=== PATIENT | male | born 1950 | race Caucasian/White ===

== ENCOUNTER 2023-09-18 11:34 | Emergency (ER) | payer OTHER, SELFPAY ==
[2023-09-18] VITALS (7 sets, daily range): BP systolic 134–171; BP diastolic 75–98; PULSE 72–95; RESP 12–19; TEMP 36.8; O2SAT 94–97; BMI 26.6
--- NOTE | 2023-09-18 11:48 | ECG_ITS ---
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 Measurements Intervals [place] Rate: 93 P: 59 MS: 159 QRS: 54 QRSD: 85 T: 33 QT: 335 QTc: 417 Interpretive Statements SINUS RHYTHM No previous ECG available for comparison Electronically Signed On 09-18-2023 13:03:13 ORDER ENTRY SPECIALIST by Evelio Elise M.D. [id number]
--- NOTE | 2023-09-18 12:07 | XR_ITS ---
WS: [id number] Portable AP upright chest, 09/18/2023 Clinical Data: syncope Comparison: None. Findings: No nodules, masses or effusions are seen. The heart is normal. The pulmonary vascularity is not increased. No pneumonia or pneumothorax is seen. The diaphragms are flattened. The aortic arch a nd descending thoracic aorta show tortuosity. There are monitor leads on the chest wall. Impression: Atherosclerosis and hyperinflation.
--- NOTE | 2023-09-18 12:17 | ED_ITS ---
HPI - Nausea/Vomiting/Diarrhea 2 General: Chief complaint: Nausea/Vomiting/Diarrhea Stated complaint: dr sent over for possible heart attack last night Time Seen by Provider: 09/18/23 11:55 Source: patient Mode of arrival: ambulatory Limitations: no limitations History of Present Illness: 73-year-old male states that last night he was laying in bed and had severe episode of feeling he is going to vomit and have diarrhea he states he ran to the bathroom had diarrhea and had a syncopal event. He states you home woke up he is covered in sweat and had diarrhea. He denies any chest pain or headache before or after the event. [facility] due to the syncopal event. He also has another complaint that is chronic he said he had chronic congestion for months and he shined a light on the phlegm and thinks that he sees cerebrospinal fluid. Associated nausea: Yes Associated symtoms: Reports nausea and syncope; Denies chest pain, dysuria or headache(s) Review of Systems 2 Const: Denies: fever(s), chills, body aches or change in appetite ENMT: Denies: throat pain or dental pain Card: Reports: syncope; Denies: chest pain Resp: Denies: dyspnea GI: Reports: nausea, vomiting and diarrhea; Denies: abdominal pain : Denies: dysuria Musc: Denies: neck pain or back pain Skin/Breast: Denies: rash Neuro: Denies: headache(s) Physical Exam 2 Const: COMMON NORMALS: no acute distress, patient oriented x3 and healthy appearing HENMT: COMMON NORMALS: normocephalic and atraumatic HEAD & SCALP: n ormocephalic and atraumatic Eye: COMMON NORMALS: Equal, round and reactive pupils present and EOMs intact bilaterally PUPIL: Yes Equal, round and reactive pupils present Neck/C-Spine: COMMON NORMALS: full ROM and supple Chest: COMMONS NORMALS: normal inspection of the chest and normal palpation of entire chest wall Resp: COMMON NORMALS: normal respiratory effort, No retractions, No use of accessory muscles and clear to auscultation bilaterally AUSCULTATION: clear to auscultation bilaterally Cardio: COMMON NORMALS: regular rate, regular rhythm and No murmurs present (Cardio) RATE: regular rate RHYTHM: regular rhythm GI: COMMON NORMALS: Normal to inspection, nondistended, normoactive bowel sounds present, Soft to palpation, non-tender and no masses PALPATION: Yes Soft to palpation Extremity: COMMON NORMALS: normal to inspection and full ROM Neuro: COMMON NORMALS: patient oriented x3, moves all extremities and no focal motor deficits Psych: COMMON NORMALS: mental status grossly normal, Normal thought process present and cooperative THOUGHT PROCESS: Normal thought process present Skin: COMMON NORMALS: no rashes or lesions noted and no wounds GENERAL SKIN EXAM: no rashes or lesions noted Course 2 Vital Signs: Vital signs: Vital Signs Temperature 98.2 F 09/18/23 11:41 Pulse Rate 72 09/18/23 14:23 Respiratory Rate 19 H 09/18/23 14:23 Blood Pressure 146/84 09/18/23 14:23 Pulse Oximetry 94 09/18/23 14:23 Oxygen Delivery Me thod Room Air 09/18/23 13:07 MDM - Nausea/Vomiting/Diarrhea Medical Decision Making Patient presents with vomiting along with a chronic cough blood work x-ray here is normal he is in no distress here also a syncopal event is likely vasovagal from his vomiting and diarrhea. He is stable for discharge his follow-up his PCP and return if worsening Medical Records I reviewed the patient's medical records. Lab Data I reviewed the patient's lab results. 09/18/23 12:02 09/18/23 12:02 Laboratory Results WBC 6.15 10^3/uL (3.29-11.43) 09/18/23 12:02 RBC 5.64 10^6/uL (3.85-5.65) 09/18/23 12:02 Hgb 16.90 g/dL (11.27-16.99) 09/18/23 12:02 Hct 49.6 % (37-53) 09/18/23 12:02 MCV 87.9 fl (82-101) 09/18/23 12:02 MCH 30.0 pg (27-33) 09/18/23 12:02 MCHC 34.1 g/dL (30-55) 09/18/23 12:02 RDW 13.2 % (12.1-15.1) 09/18/23 12:02 Plt Count 204 10^3/cmm (157-399) 09/18/23 12:02 MPV 9.7 fL (7.4-10.4) 09/18/23 12:02 Neut % (Auto) 65.0 % 09/18/23 12:02 Lymph % (Auto) 17.6 % 09/18/23 12:02 [place] % (Auto) 15.9 % 09/18/23 12:02 Eos % (Auto) 0.3 % 09/18/23 12:02 Baso % (Auto) 0.5 % 09/18/23 12:02 Neut # (Auto) 4.00 10^3/uL (1.8-7.7) 09/18/23 12:02 Lymph # (Auto) 1.1 10^3/uL (0.8-4.8) 09/18/23 12:02 [place] # (Auto) 1.0 10^3/uL (0.2-0.9) H 09/18/23 12:02 Eos # (Auto) 0.0 10^3/uL (0.0-0.8) 09/18/23 12:02 Baso # (Auto) 0.0 10^3/uL (0.0-0.1) 09/18/23 12:02 Nucleated RBC % (auto) 0 % 09/18/23 12:02 Nucleated RBCs # 0.0 /100WBC 09/18/23 12:02 Sodium 137 mmol/L (136-145) 09/18/23 12:02 Potassium 3.6 mmol/L (3.5-5.1) 09/18/23 12:02 Chloride 99 mmol/L (98-107) 09/18/23 12:02 Carbon Dioxide 25 mmol/L (22-29) 09/18/23 12:02 Anion Gap 16.6 (5-19) 09/18/23 12:02 BUN 13 mg/dL (8-23) 09/18/23 12:02 Creatinine 0.8 mg/dL (0.7-1.2) 09/18/23 12:02 GFR Calculation Not Reportable 09/18/23 12:02 Glucose 118 mg/dL (65-115) H 09/18/23 12:02 Calculated Osmolality 285 mOsm/kg (285-295) 09/18/23 12:02 Calcium 9.6 mg/dL (8.5-10.5) 09/18/23 12:02 Total Bilirubin 0.6 mg/dL (0.15-1.2) 09/18/23 12:02 AST 22 U/L (0-40) 09/18/23 12:02 ALT 14 U/L (0-41) 09/18/23 12:02 Alkaline Phosphatase 124 U/L (40-130) 09/18/23 12:02 Total Protein 8.3 g/dL (6.6-8.7) 09/18/23 12:02 Albumin 4.4 g/dL (3.5-5.2) 09/18/23 12:02 Globulin 3.9 g/dL (1.3-4.6) 09/18/23 12:02 All radiology interpretation(s) finalized by discharge EKG Data EKG 1: I personally reviewed and interpreted this EKG as follows: EKG interpretation date: 09/18/23 EKG interpretation time: 11:48 Interpretation: nsr hr [address] or t wave abnormalities qrs 85 qtc 386 Discharge Plan Discharge Patient Disposition: Home Clinical Impression: Vomiting, Chronic cough, Syncope Condition: Stable Prescriptions: New ondansetron 4 mg tablet,disintegrating 4 mg PO Q6H PRN (Reason: nausea and vomiting) Qty: 14 0RF No Action cetirizine 10 mg Tablet 10 mg PO DAILY sertraline 100 mg Tablet 100 mg PO DAILY Vitamin D3 10 mcg (400 unit) Tablet 10 mcg PO DAILY prazosin 2 mg Capsule 2 mg PO QPM rosuvastatin 40 mg Tablet 40 mg PO QPM Discharge Orders: Discharge ED (Routine); Ordered 09/18/23 Ordered By: Leigh Correa Discharge Diet: Advance as tolerated Discharge Activity: Resume usual activity Patient Instructions: Acute Nausea and Vomiting (ED), Chronic Cough (ED) Coding Level of Care Code ED Email Administrator for Mark Mcbride
[2023-09-18 12:18] LABS: Basophils % 0.5 %; Eosinophils % 0.3 %; Hematocrit 49.6 % (37-53); Lymphocytes # 1.1 10^3/uL (0.8-4.8); Lymphocytes % 17.6 %; Mean Corpuscular HGB Conc 34.1 g/dL (30-55); Mean Corpuscular Volume 87.9 fl (82-101); Mean Platelet Volume 9.7 fL (7.4-10.4); Monocytes % 15.9 %; Nucleated Red Blood Cells % 0 %; Platelet Count 204 10^3/cmm (157-399); Red Blood Count 5.64 10^6/uL (3.85-5.65); Red Cell Distribution Width 13.2 % (12.1-15.1); White Blood Count 6.15 10^3/uL (3.29-11.43)
--- NOTE | 2023-09-18 12:19 | PC.PHAR ---
FAN BAILEY FOR MED LIST 09/18/23 12:17PM
[2023-09-18 12:31] LABS: Alanine Aminotransferase 14 U/L (0-41); Albumin Level 4.4 g/dL (3.5-5.2); Alkaline Phosphatase 124 U/L (40-130); Anion Gap 16.6 (5-19); Aspartate Amino Transferase 22 U/L (0-40); Blood Urea Nitrogen 13 mg/dL (8-23); Calcium 9.6 mg/dL (8.5-10.5); Carbon Dioxide 25 mmol/L (22-29); Chloride 99 mmol/L (98-107); Globulin 3.9 g/dL (1.3-4.6); Glucose 118 mg/dL (65-115); Osmolality Calculated 285 mOsm/kg (285-295); Potassium 3.6 mmol/L (3.5-5.1); Sodium 137 mmol/L (136-145); Total Bilirubin 0.6 mg/dL (0.15-1.2); Total Protein 8.3 g/dL (6.6-8.7)
[2023-09-18] MEDS: sodium chloride 0.9% 1,000 ML 999 ML IV (12:32)
[2023-09-18] MEDS: ondansetron 2 mg/ML SDV 2 mL 4 MG IVP (12:32)
--- NOTE | 2023-09-24 08:06 | DCPLANNER ---
Message sent pulm department for a follow up appointment - Chronic cough-
== END 2023-09-18 14:27 | disposition home or self-care (01) ==
PROVIDERS: Emergency Provider Emergency Medicine
DX: R05.3 Chronic cough (principal); R11.11 Vomiting without nausea; R55 Syncope and collapse
CPT/HCPCS: 71045; 80053; 85025; 93005; 96361; 96374; 99285; J2405; J7030

== ENCOUNTER 2023-10-30 08:27 | Outpatient (CLI) | payer OTHER, SELFPAY ==
--- NOTE | 2023-10-30 08:30 | US_ITS ---
WS: [id number] RIGHT UPPER QUADRANT ULTRASOUND HISTORY: RUQ PAIN/NAUSEA VOMITING COMPARISON: None available. Liver: 13.1 cm in length. Normal size liver and echogenicity. No bile duct dilatation or solid mass. Slightly lobulated cyst towards the diaphragm 1.6 x 1.3 x 1.5 cm. Portal Vein: Normal hepatopetal flow with monophasic waveform. Gallbladder: Normally distended gallbladder with no stones or wall thickening. CBD: 0.3 cm Pancreas: Obscured. Right kidney: 10.9 cm in length. Normal size kidney. Central cyst in the renal pelvis measures 1.7 x 2.3 x 2.2 cm. Aorta and IVC: Unremarkable abdominal aorta and IVC. No ascites. IMPRESSION: 1. Normal gallbladder. 2. Small hepatic and small RIGHT renal cysts. No solid mass. 3. Pancreas not visualized.
== END 2023-10-30 08:28 | disposition home or self-care (01) ==
LOC: RAD 08:27
PROVIDERS: PCP Family Medicine; Visit Provider Family Medicine
DX: R10.11 Right upper quadrant pain (principal); R11.2 Nausea with vomiting, unspecified; K76.89 Other specified diseases of liver; N28.1 Cyst of kidney, acquired
CPT/HCPCS: 76705

== ENCOUNTER → 2023-12-02 15:12 | Outpatient (BNVA) | payer OTHER, SELFPAY | PROVIDERS: PCP Family Medicine; Referring Provider Family Medicine; Visit Provider Dermatology | DX: L82.1 Other seborrheic keratosis (principal); L91.8 Other hypertrophic disorders of the skin; D18.01 Hemangioma of skin and subcutaneous tissue; Q83.3 Accessory nipple; L81.4 Other melanin hyperpigmentation; L57.8 Other skin changes due to chronic exposure to nonionizing radiation | CPT/HCPCS: 99203 ==

== ENCOUNTER 2024-07-01 20:36 | Inpatient (IN) | payer OTHER, MEDICARE, SELFPAY ==
[2024-07-01] VITALS (8 sets, daily range): BP systolic 120–188; BP diastolic 11–103; PULSE 56–74; RESP 12–20; TEMP 36.4; O2SAT 97–100; BMI 28.1
--- NOTE | 2024-07-01 20:47 | XRR_ITS ---
PROCEDURE INFORMATION: Exam: XR Abdomen Exam date and time: 07/01/2024 9:08 PM Age: 74 years old Clinical indication: Abdominal pain; Generalized TECHNIQUE: Imaging protocol: Radiologic exam of the abdomen. Views: 2 Views. Upright and supine views. COMPARISON: US abdomen limited [id number] 10/30/2023 8:33 AM FINDINGS: Tubes, catheters and devices: Pelvic surgical clips. Lungs: Stable left upper lobe likely calcified granuloma. Gastrointestinal tract: Normal. No bowel dilation. Intraperitoneal space: Normal. No free air. Bones/joints: Multilevel spondylosis. XR/XR acute abdomen series 18902 IMPRESSION: No acute thoracic or abdominopelvic abnormality.
--- NOTE | 2024-07-01 20:52 | ECG_ITS ---
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
[2024-07-01 21:08] LABS: Basophils % 0.4 %; Eosinophils # 0.1 10^3/uL (0.0-0.8); Eosinophils % 0.7 %; Hematocrit 44.1 % (37-53); Lymphocytes # 1.1 10^3/uL (0.8-4.8); Lymphocytes % 15.1 %; Mean Corpuscular HGB Conc 33.6 g/dL (30-55); Mean Corpuscular Hemoglobin 29.5 pg (27-33); Mean Corpuscular Volume 87.8 fl (82-101); Mean Platelet Volume 9.5 fL (7.4-10.4); Monocytes # 0.5 10^3/uL (0.2-0.9); Monocytes % 6.6 %; Neutrophils # 5.33 10^3/uL (1.8-7.7); Neutrophils % 76.9 %; Nucleated Red Blood Cells % 0 %; Platelet Count 265 10^3/cmm (157-399); Red Blood Count 5.02 10^6/uL (3.85-5.65); White Blood Count 6.94 10^3/uL (3.29-11.43)
[2024-07-01 21:23] LABS: Alanine Aminotransferase 12 U/L (0-41); Albumin Level 4.5 g/dL (3.5-5.2); Alkaline Phosphatase 106 U/L (40-130); Blood Urea Nitrogen 9 mg/dL (8-23); C Reactive Protein 5.2 mg/L (0.0-4.9); Carbon Dioxide 21 mmol/L (22-29); Chloride 99 mmol/L (98-107); Creatinine Clr Calc Pharmacy 84.1908; Globulin 3.5 g/dL (1.3-4.6); Glucose 162 mg/dL (65-115); Lactic Sepsis W/Reflex 1.8 mmol/L (0.5-2.2); Osmolality Calculated 284 mOsm/kg (285-295); Sodium 136 mmol/L (136-145); Total Bilirubin 0.6 mg/dL (0.15-1.2); Troponin(5th) Baseline 69 ng/L (0-15)
--- NOTE | 2024-07-01 21:23 | ED_ITS ---
HPI - Abdominal Pain 2 General: Chief Complaint: Abdominal Pain Stated Complaint: Abd Pain Time Seen by Provider: 07/01/24 20:45 History of Present Illness: 74-year-old man who presents to the [facility] room with severe central abdominal pain and distention. Apparently after cutting down some limbs or trees today he developed the pain a few hours back. Has had some nausea no vomiting. Abdomen is slightly distended but still soft. Very tender centrally. No history of anything like this in the past. Related Data Home Medications Medication Instructions Recorded Confirmed cetirizine 10 mg tablet 10 mg PO DAILY 09/18/23 09/18/23 cholecalciferol (vitamin D3) 10 10 mcg PO DAILY 09/18/23 09/18/23 mcg (400 unit) tablet (Vitamin D3) prazosin 2 mg capsule 2 mg PO QPM 09/18/23 09/18/23 rosuvastatin 40 mg tablet 40 mg PO QPM 09/18/23 09/18/23 sertraline 100 mg tablet 100 mg PO DAILY 09/18/23 09/18/23 Previous Rx's Medication Instructions Recorded ondansetron 4 mg disintegrating 4 mg PO Q6H PRN nausea and 09/18/23 tablet vomiting #14 tabs Allergies Allergy/AdvReac Type Severity Reaction Status Date / Time No Known Allergies Allergy Verified 09/18/23 11:38 Review of Systems 2 Narrative: Constitutional symptoms: Negative except as documented in HPI. Skin symptoms: Negative except as documented in HPI. Eye symptoms: Negative except as documented in HPI. ENMT symptoms: Negative except as documented in HPI. Respiratory symptoms: Negative except as documented in HPI. Cardiovascular symptoms: Negative except as documented in HPI. Gastrointestinal symptoms: Negative except as documented in HPI. Genitourinary symptoms: Negative except as documented in HPI. Musculoskeletal symptoms: Negative except as documented in HPI. Neurologic symptoms: Negative except as documented in HPI. Psychiatric symptoms: Negative except as documented in HPI. Endocrine symptoms: Negative except as documented in HPI. Physical Exam 2 Narrative: EXAM NARRATIVE: General: Alert, no acute distress. Skin: Warm, slightly diaphoretic Head: Normocephalic, atraumatic. Neck: Supple, trachea midline. Eye: Extraocular movements are intact. Ears, nose, mouth and throat: mucosa moist. Cardiovascular: Regular, Normal peripheral perfusion. Respiratory: Lungs are clear to auscultation, respirations are non-labored, breath sounds are equal, Symmetrical chest wall expansion. Gastrointestinal: Soft, slightly distended, very tender to palpation centrally. Musculoskeletal: Normal ROM, no deformity. Neurological: Alert and oriented, No focal neurological deficit observed. Psychiatric: Cooperative, appropriate mood & affect. Course 2 Vital Signs: Vital signs: Vital Signs Temperature 97.5 F L 07/01/24 20:46 Pulse Rate 62 07/01/24 21:36 Respiratory Rate 19 H 07/01/24 21:36 Blood Pressure 173/97 07/01/24 21:21 Pulse Oximetry 100 07/01/24 21:36 Oxygen Delivery Me thod Room Air 07/01/24 21:36 MDM - Abdominal Pain Medical Decision Making Medical decision making: Differential diagnosis including but not limited to and based on the above HPI, review of systems and physical exam: In this patient with severe mid abdominal pain would have concern for bowel obstruction. Aortic dissection. Coronary event. Orders placed to evaluate differential diagnosis based on the above differential, HPI and physical exam EKG: Time 2051. Rate 63. Normal sinus rhythm, No ST-T changes, no ectopy, normal AR & QRS intervals, This was reviewed and interpreted by myself the ER physician at 2054 Lab Review: Laboratory results were reviewed and interpreted by myself the emergency room physician. No leukocytosis. No anemia. No renal failure. Glucose mildly elevated at 162. Initial troponin is 69. Second troponin was 82 Acute abdominal series: chest x-ray: No acute process. No obvious infiltrates. No pneumothorax. No cardiomegaly. This was reviewed and interpreted by myself the emergency room physician Abdomen x-ray: Nonspecific bowel gas pattern. No evidence of free air or obstruction. This was reviewed and interpreted by myself the emergency room physician. CT of the abdomen pelvis: No acute process. This was reviewed and interpreted by myself the emergency room physician. I also reviewed the radiology report. I reviewed the patient's medical record. Reexamination: Patient is now pain-free. No increased work of breathing. No altered mental status. No focal motor deficits. Once patient had pain control he gave a much better history. He described initial event of being very fatigued and more epigastric pain. This likely could be acute coronary event. Abdominal workup was negative Consultation: I spoke with Dr. Ventura who is on-call for the hospitalist and patient is being admitted. Assessment and plan: Non-ST elevation myocardial infarction - Discharged home - Discussed findings and plan with patient. Answered any questions. - All laboratory values were reviewed and interpreted personally by myself, the ER physician - All imaging was reviewed and interpreted personally by myself, the ER physician. - Evaluation and treatment of this problem were appropriate in the emergency setting Lab Data 07/01/24 21:04 07/01/24 21:04 Labs/Radiology: Radiology Impressions Chest/Abdomen X-ray 07/01/24 20:47 IMPRESSION: No acute thoracic or abdominopelvic abnormality. Abdomen/Pelvis CT 07/01/24 22:33 IMPRESSION: No acute abdominopelvic abnormality. COMMENTS: Consistent with the [place] [employer]'s Incidental Findings Committee white paper (J Am Neela Radiol 2018): Any incidental renal lesion less than 1 cm or classified as too small to characterize, or any incidental cystic renal lesion characterized as simple-appearing, is likely benign. No follow-up imaging is recommended for these lesions per consensus recommendations based on imaging criteria. Laboratory Results WBC 6.94 10^3/uL (3.29-11.43) 07/01/24 21:04 RBC 5.02 10^6/uL (3.85-5.65) 07/01/24 21:04 Hgb 14.80 g/dL (11.27-16.99) 07/01/24 21:04 Hct 44.1 % (37-53) 07/01/24 21:04 MCV 87.8 fl (82-101) 07/01/24 21:04 MCH 29.5 pg (27-33) 07/01/24 21:04 MCHC 33.6 g/dL (30-55) 07/01/24 21:04 RDW 14.0 % (12.1-15.1) 07/01/24 21:04 Plt Count 265 10^3/cmm (157-399) 07/01/24 21:04 MPV 9.5 fL (7.4-10.4) 07/01/24 21:04 Neut % (Auto) 76.9 % 07/01/24 21:04 Lymph % (Auto) 15.1 % 07/01/24 21:04 [place] % (Auto) 6.6 % 07/01/24 21:04 Eos % (Auto) 0.7 % 07/01/24 21:04 Baso % (Auto) 0.4 % 07/01/24 21:04 Neut # (Auto) 5.33 10^3/uL (1.8-7.7) 07/01/24 21:04 Lymph # (Auto) 1.1 10^3/uL (0.8-4.8) 07/01/24 21:04 [place] # (Auto) 0.5 10^3/uL (0.2-0.9) 07/01/24 21:04 Eos # (Auto) 0.1 10^3/uL (0.0-0.8) 07/01/24 21:04 Baso # (Auto) 0.0 10^3/uL (0.0-0.1) 07/01/24 21:04 Nucleated RBC % (auto) 0 % 07/01/24 21:04 Nucleated RBCs # 0.0 /100WBC 07/01/24 21:04 D-Dimer 0.42 ug/mLFEU (0-0.59) 07/01/24 21:04 Sodium 136 mmol/L (136-145) 07/01/24 21:04 Potassium 3.8 mmol/L (3.5-5.1) 07/01/24 21:04 Chloride 99 mmol/L (98-107) 07/01/24 21:04 Carbon Dioxide 21 mmol/L (22-29) L 07/01/24 21:04 Anion Gap 19.8 (5-19) H 07/01/24 21:04 BUN 9 mg/dL (8-23) 07/01/24 21:04 Creatinine 0.8 mg/dL (0.7-1.2) 07/01/24 21:04 GFR Calculation Not Reportable 07/01/24 21:04 Glucose 162 mg/dL (65-115) H 07/01/24 21:04 Calculated Osmolality 284 mOsm/kg (285-295) L 07/01/24 21:04 Lactic Acid 1.8 mmol/L (0.5-2.2) 07/01/24 21:04 Calcium 9.0 mg/dL (8.5-10.5) 07/01/24 21:04 Total Bilirubin 0.6 mg/dL (0.15-1.2) 07/01/24 21:04 AST 21 U/L (0-40) 07/01/24 21:04 ALT 12 U/L (0-41) 07/01/24 21:04 Alkaline Phosphatase 106 U/L (40-130) 07/01/24 21:04 Troponin T Baseline 69 ng/L (0-15) H 07/01/24 21:04 Troponin T 120 Minute 82.17 ng/L (0-15) H 07/01/24 23:20 Delta Troponin T 13.17 ABS# (0-10) H* 07/01/24 23:20 C-Reactive Protein 5.2 mg/L (0.0-4.9) H 07/01/24 21:04 Total Protein 8.0 g/dL (6.6-8.7) 07/01/24 21:04 Albumin 4.5 g/dL (3.5-5.2) 07/01/24 21:04 Globulin 3.5 g/dL (1.3-4.6) 07/01/24 21:04 Urine Color Yellow (Yellow) 07/01/24 21:30 Urine Appearance Clear (CLEAR) 07/01/24 21:30 Urine pH 8.5 (5-7) A 07/01/24:30 Ur Specific [place] 1.013 (1.005-1.030) 07/01/24 21:30 Urine Protein Trace (Negative) A 07/01/24 21:30 Urine Glucose (UA) Negative (Normal) 07/01/24 21:30 Urine Ketones 2+ (Negative) H 07/01/24 21:30 Urine Blood Negative (Negative) 07/01/24 21:30 Urine Nitrate Negative (Negative) 07/01/24 21:30 Urine Bilirubin Negative (Negative) 07/01/24 21:30 Urine Urobilinogen 0.2 mg/dL (Negative) 07/01/24 21:30 Ur Leukocyte Esterase Negative (Negative) 07/01/24 21:30 Urine RBC 3-5 /hpf (0-2) 07/01/24 21:30 Urine WBC 0-5 /hpf (0-5) 07/01/24 21:30 Ur Squamous Epith Cells 0-5 /hpf (0-5) 07/01/24 21:30 Amorphous Sediment Not Reportable 07/01/24 21:30 Urine Bacteria None seen /hpf (NONE) 07/01/24 21:30 Hyaline Casts 0-4 /lpf H 07/01/24 21:30 All radiology interpretation(s) finalized by discharge Discharge Plan Discharge Patient Disposition: Admitted As Inpatient Clinical Impression: Non-ST elevated myocardial infarction Condition: Stable Coding Level of Care Code ED Control And Recovery Special Tactics for Mark Mcbride
[2024-07-01 21:25] LABS: Anion Gap 19.8 (5-19); Aspartate Amino Transferase 21 U/L (0-40); Potassium 3.8 mmol/L (3.5-5.1)
[2024-07-01] MEDS: HYDROmorphone 1 mg/mL INJ 1 mL IVP (21:39)
[2024-07-01] MEDS: ondansetron 2 mg/ML SDV 2 mL 4 MG IVP (21:40)
[2024-07-01 21:41] LABS: Bilirubin Urine Negative (Negative); Blood Urine Negative (Negative); Glucose Urine UA Negative (Normal); Ketones Urine 2+ (Negative); Leukocyte Esterase Urine Negative (Negative); Nitrate Urine Negative (Negative); Protein Urine Trace (Negative); Specific Gravity, Urine 1.013 (1.005-1.030); Urine Appearance Clear (CLEAR); Urine Color Yellow (Yellow); Urobilinogen Urine 0.2 mg/dL (Negative); pH Urine 8.5 (5-7)
[2024-07-01 21:46] LABS: Bacteria Urine None Seen /hpf; Hyaline Casts Urine 0-4 /lpf; Squamous Epithelial Cell Urine 0-5 /hpf (0-5); WBC Urine 0-5 /hpf (0-5)
[2024-07-01 21:56] LABS: D Dimer 0.42 ug/mLFEU (0-0.59)
--- NOTE | 2024-07-01 22:33 | CTR_ITS ---
PROCEDURE INFORMATION: Exam: CT Abdomen And Pelvis With Contrast Exam date and time: 07/01/2024 10:42 PM Age: 74 years old Clinical indication: Abdominal pain; Epigastric; Prior surgery; Surgery date: 6+ months; Surgery type: Prostate removal TECHNIQUE: Imaging protocol: Computed tomography of the abdomen and pelvis with contrast. Radiation optimization: All CT scans at this facility use at least one of these dose optimization techniques: automated exposure control; mA and/or kV adjustment per patient size (includes targeted exams where dose is matched to clinical indication); or iterative reconstruction. Contrast material: OMNI 350; Contrast volume: 100 ml; Contrast route: INTRAVENOUS (IV); COMPARISON: CR (CHEST, ) 07/01/2024 9:08 PM RADIATION DOSE METRICS: Total DLP (mGy-cm): 753.34 FINDINGS: Liver: Bilobar simple hepatic cysts. Gallbladder and biliary ducts: Normal. No calcified stones. No ductal dilation. Pancreas: Unremarkable. Spleen: Splenic granulomas. Adrenal glands: Unremarkable. Kidneys and ureters: Bilateral simple renal cysts. Stomach and bowel: Unremarkable. No mechanical obstruction. No mucosal thickening. Appendix: Unremarkable. Intraperitoneal space: No free air or free fluid. Vasculature: Moderate atherosclerotic changes of the aorta and its major branches. Lymph nodes: Unremarkable. Urinary bladder: Unremarkable. Reproductive: Postoperative changes of prostatectomy. Bones/joints: Moderate multilevel spondylosis. Sclerotic foci in the left acetabulum and iliac bone likely representing bone islands. Soft tissues: Unremarkable. CT/CT abdomen pelvis w con* [id number] IMPRESSION: No acute abdominopelvic abnormality. COMMENTS: Consistent with the [place] [employer]'s Incidental Findings Committee white paper (J Am Neela Radiol 2018): Any incidental renal lesion less than 1 cm or classified as too small to characterize, or any incidental cystic renal lesion characterized as simple-appearing, is likely benign. No follow-up imaging is recommended for these lesions per consensus recommendations based on imaging criteria.
[2024-07-01] MEDS: iohexol 350 mg/mL 500 mL Btl (per mL) IV (22:46)
--- NOTE | 2024-07-01 22:48 | ECG_ITS ---
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: : 1950 Requested By: Li Novak Order Number: [id number] Reading MD: COLE RAMIREZ Measurements Intervals [place] Rate: 55 P: 48 [place]: 179 QRS: 28 QRSD: 100 T: 25 QT: 455 QTc: 439 Interpretive Statements SINUS BRADYCARDIA WITH OCCASIONAL ECTOPIC PREMATURE COMPLEXES POSSIBLE LEFT ATRIAL ENLARGEMENT [-0.1mV P-WAVE IN V1/V2] ST DEVIATION AND MODERATE T-WAVE ABNORMALITY, CONSIDER ANTEROLATERAL ISCHEMIA [-0.1+ mV T-WAVE IN V3-V6] Compared to ECG 07/01/2024 20:52:07 Possible ischemia now present Sinus rhythm no longer present T-wave abnormality still present Electronically Signed On 07-03-2024 18:19:46 CDT by COLE RAMIREZ [id number]
[2024-07-01 23:53] LABS: Troponin 5 2HR 82.17 ng/L (0-15)
[2024-07-01 23:55] LABS: Troponin 5 2HR Delta 13.17 ABS# (0-10)
[2024-07-02] VITALS (14 sets, daily range): BP systolic 119–153; BP diastolic 66–88; PULSE 50–78; RESP 11–28; TEMP 36.5–36.9; O2SAT 90–99; BMI 28.3
--- NOTE | 2024-07-02 02:48 | ECG_ITS ---
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1950 Requested By: Li Novak Order Number: [id number] Reading MD: COLE RAMIREZ Measurements Intervals [place] Rate: 57 P: 42 [place]: 181 QRS: 29 QRSD: 94 T: 1 QT: 419 QTc: 411 Interpretive Statements SINUS BRADYCARDIA WITH FREQUENT ECTOPIC PREMATURE COMPLEXES POSSIBLE LEFT ATRIAL ENLARGEMENT [-0.1mV P-WAVE IN V1/V2] ST DEVIATION AND MODERATE T-WAVE ABNORMALITY, CONSIDER ANTEROLATERAL ISCHEMIA [-0.1+ mV T-WAVE IN V3-V6] Compared to ECG 07/02/2024 00:08:11 No significant changes Electronically Signed On 07-03-2024 18:15:35 CDT by COLE RAMIREZ [id number]
[2024-07-02 03:36] LABS: Basophils % 0.4 %; Eosinophils % 0.4 %; Hematocrit 43.4 % (37-53); Lymphocytes % 14.6 %; Mean Corpuscular HGB Conc 33.2 g/dL (30-55); Mean Corpuscular Hemoglobin 29.9 pg (27-33); Mean Corpuscular Volume 90.2 fl (82-101); Mean Platelet Volume 9.6 fL (7.4-10.4); Monocytes # 0.5 10^3/uL (0.2-0.9); Monocytes % 8.1 %; Neutrophils # 5.09 10^3/uL (1.8-7.7); Neutrophils % 76.2 %; Nucleated Red Blood Cells % 0 %; Platelet Count 273 10^3/cmm (157-399); Red Blood Count 4.81 10^6/uL (3.85-5.65); Red Cell Distribution Width 14.2 % (12.1-15.1); White Blood Count 6.69 10^3/uL (3.29-11.43)
[2024-07-02 03:44] LABS: Troponin 5 6HR 90.35 ng/L (0-15)
[2024-07-02 03:46] LABS: Anion Gap 13.7 (5-19); Blood Urea Nitrogen 10 mg/dL (8-23); Calcium 8.7 mg/dL (8.5-10.5); Carbon Dioxide 27 mmol/L (22-29); Chloride 100 mmol/L (98-107); Glucose 161 mg/dL (65-115); Osmolality Calculated 287 mOsm/kg (285-295); Potassium 3.7 mmol/L (3.5-5.1); Sodium 137 mmol/L (136-145)
[2024-07-02 03:49] LABS: Troponin 5 6HR Delta 21.35 ng/L (0-12)
--- NOTE | 2024-07-02 04:17 | P.HP_ITS ---
Providers/Chief Complaint 2 Admitting Physician: Janiya Ventura MD Primary Care Provider: Ana Park MD Chief Complaint: Abd Pain History of Present Illness Raza Bauer is a 74 year old male with a past medical history of hypertension, prediabetes, dyslipidemia, occasional marijuana use presenting to the hospital today with chief complaints of dyspnea on exertion. Patient states he was in his usual state of health until last when he noticed that he started experiencing dyspnea with his usual activities. He states he was out chopping some firewood on his property when he started to experience chest discomfort as if his heart was not keeping up with the demand . He could barely walk 6 feet without getting short of breath. States that the symptoms continued to progress over the next 3 to 4 days and yesterday patient had to stop 4 times to get back into his house in order to catch his breath. Denies any orthopnea. Denies any PND. Saturating 93% on room air currently. Chest x-ray without gross consolidation. No other URI or respiratory symptoms. No known history of cardiac disease. States he had a stress test in [place] several years ago which was normal. Family history of heart disease in father which led to his demise, does not know at what age. Review of Systems 2 General: Reports: 10 or more systems reviewed and unremarkable except in HPI and below Const: Denies: fever(s), chills or body aches Eyes: Denies: change in vision, blurry vision or photophobia ENMT: Reports: hoarseness; Denies: throat pain, enlarged tonsils, odynophagia or nasal congestion Card: Denies: chest pain, palpitations, irregular heart rhythm, edema, swelling of feet/ankles, lightheadedness, pre-syncope, dyspnea on exertion or orthopnea Resp: Denies: dyspnea, productive cough, non-productive cough, wheezing, stridor, pain on inspiration, change in phlegm color, hemoptysis or chest congestion GI: Denies: abdominal pain, nausea, vomiting, hematemesis, coffee ground emesis, dysphagia, heartburn, diarrhea, constipation, GI cramping, change in stool character, hematochezia or melena : Denies: flank pain, dysuria, urinary frequency, urinary urgency, urinary hesitancy or hematuria Musc: Denies: neck pain, back pain, extremity pain, joint swelling, joint warmth or deformity Neuro: Denies: headache(s), numbness in extremities, weakness in extremities, sensory changes, difficulty walking, frequent falls, dizziness, vertigo, behavioral changes, Slurred speech present or seizure-like activity Psych: Denies: anxiety, depression, suicidal ideation or homicidal ideation Endo: Denies: polyuria, polydipsia, tired all the time, cold intolerance or hot flashes Mohan/Lymph: Denies: easy bruising or easy bleeding Medications/Allergies Home Medications Medication Instructions Recorded Confirmed Last Taken Type cetirizine 10 mg tablet 10 mg PO DAILY 09/18/23 07/02/24 07/01/24 History cholecalciferol (vitamin D3) 10 10 mcg PO DAILY 09/18/23 07/02/24 07/01/24 History mcg (400 unit) tablet (Vitamin D3) ondansetron 4 mg disintegrating 4 mg PO Q6H PRN nausea and 09/18/23 07/02/24 Unknown Rx tablet vomiting #14 tabs prazosin 2 mg capsule 2 mg PO QPM 09/18/23 07/02/24 07/01/24 History rosuvastatin 40 mg tablet 40 mg PO QPM 09/18/23 07/02/24 07/01/24 History sertraline 100 mg tablet 100 mg PO DAILY 09/18/23 07/02/24 07/01/24 History oxybutynin chloride 10 mg 10 mg PO DAILY 07/02/24 07/02/24 07/01/24 History tablet,extended release 24 hr Allergies Allergy/AdvReac Type Severity Reaction Status Date / Time No Known Allergies Allergy Verified 09/18/23 11:38 PFSH Acute 2 PFSH: Medical History (Updated 07/02/24 @ 05:10 by Janiya Ventura MD) Prediabetes Hyperlipidemia Hypertension Vitals/I&O/Wt Last Vital Signs Temp 98.4 F 07/02/24 03:10 Pulse 78 07/02/24 03:10 Resp 16 07/02/24 03:10 BP 128/69 07/02/24 03:10 Pulse Ox 94 07/02/24 03:10 O2 Del Method Room Air 07/02/24 03:10 Weight last 48 hrs Weight 84.323 kg Weight 84.6 kg Weight 83.915 kg Physical Exam 2 Narrative: General: No acute distress, AO x3 HEENT: PERRLA, pupils bilaterally equal and reactive, pallors not present Chest: Normal vesicular breath sounds, no added sounds, equal good air entry bilaterally CVS: S1-S2 regular, no murmurs, no tachycardia, no gallops, no rubs Abdomen: Soft, nontender, no organomegaly, bowel sounds present Neuro: No focal deficits, no facial deformity, AO x3, power 5/5 in all limbs Ext: no edema, clubbing or cyanosis Data 07/02/24 03:10 07/02/24 03:10 Micro: Microbiology 07/01/24 21:26 Blood Culture - Preliminary Blood SPECIMEN COLLECTED 07/01/24 21:21 Blood Culture - Preliminary Blood SPECIMEN COLLECTED Other data: Radiology Impressions Chest/Abdomen X-ray 07/01/24 20:47 IMPRESSION: No acute thoracic or abdominopelvic abnormality. Abdomen/Pelvis CT 07/01/24 22:33 IMPRESSION: No acute abdominopelvic abnormality. COMMENTS: Consistent with the [employer]'s Incidental Findings Committee white paper (J Am Neela Radiol 2018): Any incidental renal lesion less than 1 cm or classified as too small to characterize, or any incidental cystic renal lesion characterized as simple-appearing, is likely benign. No follow-up imaging is recommended for these lesions per consensus recommendations based on imaging criteria. Laboratory Results WBC 6.69 10^3/uL (3.29-11.43) 07/02/24 03:10 RBC 4.81 10^6/uL (3.85-5.65) 07/02/24 03:10 Hgb 14.40 g/dL (11.27-16.99) 07/02/24 03:10 Hct 43.4 % (37-53) 07/02/24 03:10 MCV 90.2 fl (82-101) 07/02/24 03:10 MCH 29.9 pg (27-33) 07/02/24 03:10 MCHC 33.2 g/dL (30-55) 07/02/24 03:10 RDW 14.2 % (12.1-15.1) 07/02/24 03:10 Plt Count 273 10^3/cmm (157-399) 07/02/24 03:10 MPV 9.6 fL (7.4-10.4) 07/02/24 03:10 Neut % (Auto) 76.2 % 07/02/24 03:10 Lymph % (Auto) 14.6 % 07/02/24 03:10 [place] % (Auto) 8.1 % 07/02/24 03:10 Eos % (Auto) 0.4 % 07/02/24 03:10 Baso % (Auto) 0.4 % 07/02/24 03:10 Neut # (Auto) 5.09 10^3/uL (1.8-7.7) 07/02/24 03:10 Lymph # (Auto) 1.0 10^3/uL (0.8-4.8) 07/02/24 03:10 [place] # (Auto) 0.5 10^3/uL (0.2-0.9) 07/02/24 03:10 Eos # (Auto) 0.0 10^3/uL (0.0-0.8) 07/02/24 03:10 Baso # (Auto) 0.0 10^3/uL (0.0-0.1) 07/02/24 03:10 Nucleated RBC % (auto) 0 % 07/02/24 03:10 Nucleated RBCs # 0.0 /100WBC 07/02/24 03:10 D-Dimer 0.42 ug/mLFEU (0-0.59) 07/01/24 21:04 Sodium 137 mmol/L (136-145) 07/02/24 03:10 Potassium 3.7 mmol/L (3.5-5.1) 07/02/24 03:10 Chloride 100 mmol/L (98-107) 07/02/24 03:10 Carbon Dioxide 27 mmol/L (22-29) 07/02/24 03:10 Anion Gap 13.7 (5-19) 07/02/24 03:10 BUN 10 mg/dL (8-23) 07/02/24 03:10 Creatinine 0.8 mg/dL (0.7-1.2) 07/02/24 03:10 GFR Calculation Not Reportable 07/02/24 03:10 Glucose 161 mg/dL (65-115) H 07/02/24 03:10 Estimat Average Glucose 128 07/02/24 03:10 Calculated Osmolality 287 mOsm/kg (285-295) 07/02/24 03:10 Lactic Acid 1.8 mmol/L (0.5-2.2) 07/01/24 21:04 Calcium 8.7 mg/dL (8.5-10.5) 07/02/24 03:10 Total Bilirubin 0.6 mg/dL (0.15-1.2) 07/01/24 21:04 AST 21 U/L (0-40) 07/01/24 21:04 ALT 12 U/L (0-41) 07/01/24 21:04 Alkaline Phosphatase 106 U/L (40-130) 07/01/24 21:04 Troponin T Baseline 69 ng/L (0-15) H 07/01/24 21:04 Troponin T 120 Minute 82.17 ng/L (0-15) H 07/01/24 23:20 Delta Troponin T 13.17 ABS# (0-10) H* 07/01/24 23:20 Troponin T Hi Sens 6Hr 90.35 ng/L (0-15) H 07/02/24 03:10 Troponin T Hi Sens 6Hr Delta 21.35 ng/L (0-12) H* 07/02/24 03:10 C-Reactive Protein 5.2 mg/L (0.0-4.9) H 07/01/24 21:04 Total Protein 8.0 g/dL (6.6-8.7) 07/01/24 21:04 Albumin 4.5 g/dL (3.5-5.2) 07/01/24 21:04 Globulin 3.5 g/dL (1.3-4.6) 07/01/24 21:04 Triglycerides 73 mg/dL (0-150) 07/02/24 03:10 Cholesterol 168 mg/dL (0-200) 07/02/24 03:10 LDL Cholesterol, Calc 86 mg/dL (50-129) 07/02/24 03:10 HDL Cholesterol 67 mg/dL (60-100) 07/02/24 03:10 LDL/HDL Ratio 1.28 RATIO (0.00-3.22) 07/02/24 03:10 Cholesterol/HDL Ratio 2.51 mg/dL (1.0-5.00) 07/02/24 03:10 Urine Color Yellow (Yellow) 07/01/24 21:30 Urine Appearance Clear (CLEAR) 07/01/24 21:30 Urine pH 8.5 (5-7) A 07/01/24 21:30 Ur Specific [place] 1.013 (1.005-1.030) 07/01/24 21:30 Urine Protein Trace (Negative) A 07/01/24 21:30 Urine Glucose (UA) Negative (Normal) 07/01/24: Urine Ketones 2+ (Negative) H 07/01/24: Urine Blood Negative (Negative) 07/01/24 21: Urine Nitrate Negative (Negative) 07/01/24: Urine Bilirubin Negative (Negative) 07/01/24: Urine Urobilinogen 0.2 mg/dL (Negative) 07/01/24: Ur Leukocyte Esterase Negative (Negative) 07/01/24:30 Urine RBC 3-5 /hpf (0-2) 07/01/24 21: Urine WBC 0-5 /hpf (0-5) 07/01/24: Ur Squamous Epith Cells 0-5 /hpf (0-5) 07/01/24 21: Amorphous Sediment Not Reportable 07/01/24: Urine Bacteria None seen /hpf (NONE) 07/01/24: Hyaline Casts 0-4 /lpf H 07/01/24 21:30 A&P Assessment and plan (1) Non-ST elevated myocardial infarction: Patient presenting with dyspnea on exertion and chest discomfort. EKG with T wave inversion in V3,V4,V5. Changes appear to be new compared to 09/2023. Trop series 69--> 82 --> 90, delta of 13 and 21 at 2 hrs and 6 hrs respectively. Admit to CSU for NSTEMI ASA 325 mg stat followed by ASA 81mg daily Plavix 300mg x 1 now lovenox 1mg/kg s/c q12h Atorvastatin 40mg daily check Hba1c and lipid panel echocardiogram Cardiology consult NPO for possible angiogram currently chest pain free Did c/o abdominal discomfort earlier , CT abdomen unremarkable Plan DVT ppx: on full dose lovenox currently Full code Attestations 2 Medical Necessity Statement*: > 2 midnight stay anticipated for NSTEMI management Coding Level of Care Code Acute Code for Chg Fwd High MDM includes number and complexity of problems actively addressed during encounter, amount and/or complexity of data reviewed/ordered and described risk of complication, morbidity or mortality of management as documented Diagnoses Non-ST elevated myocardial infarction I21.4
[2024-07-02 04:37] LABS: Chol HDL Ratio 2.51 mg/dL (1.0-5.00); Cholesterol 168 mg/dL (0-200); HDL Cholesterol 67 mg/dL (60-100); LDL Cholesterol Calculated 86 mg/dL (50-129); LDL HDL Ratio 1.28 RATIO (0.00-3.22); Triglycerides 73 mg/dL (0-150)
[2024-07-02] MEDS: atorvastatin 40 mg Tablet PO ×2 (04:48→21:02)
[2024-07-02] MEDS: enoxaparin 40 mg/0.4 mL Syringe 80 MG SUBCUT (04:48)
[2024-07-02] MEDS: aspirin 325 mg Tablet PO (04:48)
[2024-07-02] MEDS: clopidogrel 300 mg Tablet PO (04:48)
--- NOTE | 2024-07-02 04:55 | USCV_ITS ---
Raza Bauer Age: 74 Gender: M : 1950 Exam Date: 07/02/2024 15:42 Ordering Phys: Janiya Ventura MD Technologist: Peter Main Exam Location: [facility] [place] Indication: nstemi BP: 155 / 83 HR: 60 Rhythm: Sinus Technical Quality: Adequate MEASUREMENTS (Male / Female) Normal Values 2D ECHO LV Diastolic Diameter PLAX 5.7 cm 4.2 - 5.9 / 3.9 - 5.3 cm IVS Diastolic Thickness 1.2 cm 0.6 - 1.0 / 0.6 - 0.9 cm IVS Systolic Thickness 1.8 cm LVPW Diastolic Thickness 1.4 cm 0.6 - 1.0 / 0.6 - 0.9 cm LVPW Systolic Thickness 2.7 cm LVOT Diameter 2.1 cm LV Ejection Fraction 2D Teich 69.4 % LV Ejection Fraction MOD 4C 75.8 % LV Ejection Fraction MOD 2C 67.4 % LV Ejection Fraction 2C AL 66.6 % LA Diameter 4.1 cm RA Systolic Volume 4C AL 47.4 ml RA Systolic Volume 4C MOD 46.5 ml LA Sys Volume AL 68.4 cm cubed LA Sys Volume Index AL 33.8 cm cubed/m squared Aorta at Sinotubular Diameter 2.6 cm IVC Diameter 1.9 cm M-MODE LA Ao Ratio MM 1.3 AV Cusp Separation MM 2.0 cm DOPPLER AV Peak Velocity 185.0 cm/s LVOT Peak Velocity 121.0 cm/s AV Area Cont Eq vti 2.3 cm squared AV Area Cont Eq pk 2.2 cm squared MV Peak Velocity 197.0 cm/s MV Area PHT 3.9 cm squared Mitral E to A Ratio 0.9 TV Peak Velocity 348.7 cm/s TR Peak Velocity 416.0 cm/s TR Peak Gradient 69.2 mmHg TR Mean Velocity 330.0 cm/s TR Mean Gradient 47.1 mmHg TR Velocity Time Integral 115.5 cm PV Peak Velocity 97.7 cm/s RV Ejection Time 0.3 s FINDINGS Left Ventricle Normal left ventricular size, systolic function and wall thickness, with no regional wall motion abnormalities. Mildly increased left ventricular cavity size. Left ventricular ejection fraction is estimated at 60 %. Grade I/IV diastolic dysfunction (abnormal relaxation filling pattern), normal to mildly elevated filling pressures. Right Ventricle The right ventricle is normal in size and function. Right Atrium The right atrium is normal in size. Left Atrium The left atrium is normal in size. Mitral Valve Structurally normal mitral valve without significant stenosis or prolapse. There is no mitral regurgitation. Aortic Valve Severe aortic valve calcification. Mildly restricted aortic , mean gradient 7.4 mmHg, JEN 2.3 cm squared. Trace aortic valve regurgitation. Tricuspid Valve Mild tricuspid valve regurgitation. Pulmonic Valve Structurally normal pulmonic valve without significant stenosis. There is no pulmonic regurgitation. Pericardium Normal pericardium without effusion. Aorta Normal ascending aorta dimension. IVC The inferior vena cava appears normal. CONCLUSIONS 1-Normal left ventricular size, systolic function and wall thickness, with no regional wall motion abnormalities. Mildly increased left ventricular cavity size. Left ventricular ejection fraction is estimated at 60 %. Grade I/IV diastolic dysfunction (abnormal relaxation filling pattern), normal to mildly elevated filling pressures. 2-Severe aortic valve calcification. Mildly restricted aortic , mean gradient 7.4 mmHg, JEN 2.3 cm squared. Trace aortic valve regurgitation. 3-Mild tricuspid valve regurgitation. 4-There is no pericardial effusion. 5-Pulmonary artery systolic pressure is within normal limits. 6-Right atrial pressure is around 5 mm of mercury. Fredis Parson MD (Electronically Signed) Final Date: 02 July 2024 18:57 S
[2024-07-02 05:12] LABS: Estmated Average Glucose 128; Hemoglobin A1C 6.1 % (4.0-6.0)
[2024-07-02] MEDS: aspirin 81 mg EC Tablet PO (09:21)
[2024-07-02] MEDS: pantoprazole DR 40 mg Tablet PO (09:21)
[2024-07-02] MEDS: sertraline 100 mg Tablet PO (09:21)
--- NOTE | 2024-07-02 10:42 | PC.SOCIAL ---
IMM Update Pg. 2 of IMM updated and reviewed with patient, who verbalized understanding. Copy provided.
--- NOTE | 2024-07-02 11:03 | P.CONIM_ITS ---
Providers/Reason For Consult 2 Consulting Physician/Specialty*: Hospitalist Reason for Consult*: NSTEMI Requesting Physician: Dr. Ventura Attending Physician: Aman Pulido MD Primary Care Provider: Ana Park MD History of Present Illness History of Present Illness Raza Bauer is a pleasant 74 year old male past medical history significant of hypertension hyperlipidemia occasional marijuana use presented with chest pain on mild exertion shortness of breath, he was ruled in for non-ST elevation PA, twelve-lead EKG shows sinus rhythm with anterolateral T wave inversion suggestive of anterior wall ischemia. We have been asked to assist in patient's care. When I saw the patient he was chest pain free, given classic history of angina and high suspicion of coronary artery disease will proceed with left heart catheterization. Further plan will be advised as per progress of the patient. Medications/Allergies Home Medications Medication Instructions Recorded Confirmed Last Taken Type cetirizine 10 mg tablet 10 mg PO DAILY 09/18/23 07/02/24 07/01/24 History cholecalciferol (vitamin D3) 10 10 mcg PO DAILY 09/18/23 07/02/24 07/01/24 History mcg (400 unit) tablet (Vitamin D3) ondansetron 4 mg disintegrating 4 mg PO Q6H PRN nausea and 09/18/23 07/02/24 Unknown Rx tablet vomiting #14 tabs prazosin 2 mg capsule 2 mg PO QPM 09/18/23 07/02/24 07/01/24 History rosuvastatin 40 mg tablet 40 mg PO QPM 09/18/23 07/02/24 07/01/24 History sertraline 100 mg tablet 100 mg PO DAILY 09/18/23 07/02/24 07/01/24 History oxybutynin chloride 10 mg 10 mg PO DAILY 07/02/24 07/02/24 07/01/24 History tablet,extended release 24 hr Allergies Allergy/AdvReac Type Severity Reaction Status Date / Time No Known Allergies Allergy Verified 09/18/23 11:38 Current Medications Generic Name Dose Route Start Last Admin Trade Name Freq PRN Reason Stop Dose Admin Aspirin 81 mg 07/02/24 09:00 07/02/24 09:21 Aspirin 81 Mg Ec Tablet PO 81 mg DAILY JUANA Administration Atorvastatin Calcium 40 mg 07/02/24 04:20 07/02/24 04:48 Atorvastatin 40 Mg Tablet PO 40 mg BEDTIME JUANA Administration Enoxaparin Sodium 80 mg 07/02/24 04:30 07/02/24 04:48 Enoxaparin 40 Mg/0.4 Ml Syringe SUBCUT 80 mg Q12H JUANA Administration Pantoprazole Sodium 40 mg 07/02/24 09:00 07/02/24 09:[address] 40 Mg Tablet PO 40 mg DAILY JUANA Administration Sertraline HCl 100 mg 07/02/24 09:00 07/02/24 09:21 Sertraline 100 Mg Tablet PO 100 mg DAILY JUANA Administration PFSH Acute 2 PFSH: Medical History (Updated 07/02/24 @ 05:10 by Janiya Ventura MD) Prediabetes Hyperlipidemia Hypertension Vitals/I&O/Wt Last Vital Signs Temp 97.7 F 07/02/24 07:45 Pulse 70 07/02/24 07:45 Resp 17 07/02/24 07:45 BP 144/69 07/02/24 07:45 Pulse Ox 93 07/02/24 07:45 O2 Del Method Room Air 07/02/24 07:45 07/01/24 07/02/24 07/02/24 22:59 06:59 14:59 Output Total 450 / 450 Balance -450 / -450 Weight last 48 hrs Weight 184 lb 4.903 oz Weight 185 lb 14.4 oz Weight 186 lb 8.177 oz Weight 185 lb Physical Exam 2 Const: OTHER: GENERAL: Patient is alert, awake and oriented x3. HEART: Regular S1 and S2. No murmur, rub or gallop. LUNGS: Clear to auscultate bilaterally. ABDOMEN: Soft, nontender and nondistended. Positive bowel sounds. No guarding, rebound or tenderness. CENTRAL NERVOUS SYSTEM: Grossly nonfocal. EXTREMITIES: Lower extremities with out edema bilaterally. Data 07/02/24 03:10 07/02/24 03:10 Micro: Microbiology 07/01/24 21:26 Blood Culture - Preliminary Blood SPECIMEN COLLECTED 07/01/24 21:21 Blood Culture - Preliminary Blood SPECIMEN COLLECTED A&P Assessment and plan (1) Non-ST elevated myocardial infarction: Continue aspirin statin beta-nelli heparin and if required nitroglycerin. Will proceed with left heart catheterization. Further plan be advised as per progress of patient. Patient has been explained all risk-benefit and alternative for the procedure he would like to proceed with it. Echocardiogram will be obtained to assess LV function and wall motion abnormality. (2) Hypertension: Well-controlled continue current regimen (3) Hyperlipidemia: Will continue patient on statin. Coding Level of Care Code Acute Code for Chg Fwd Diagnoses Non-ST elevated myocardial infarction I21.4 Hypertension I10 Hyperlipidemia E78.5
[2024-07-02] MEDS: diphenhydrAMINE 50 mg Capsule PO (11:37)
[2024-07-02] MEDS: sodium chloride 0.9% 1,000 ML 50 ML IV (11:38)
--- NOTE | 2024-07-02 12:30 | XACV_ITS ---
Exam Room: [facility] Ht: 173 cm Wt: 83 kg BSA: 2.02 m2 Gender: Male : 1950 Any Known Allergies: No known allergies Exam Priority: Routine Procedure(s): Procedure Description: Diagnostic procedure Procedure Description: Left Heart Catheterization Procedure Description: Left ventriculography Procedure Description: Aortogram Procedure Description: Miscellaneous Procedure Description: Angio-Seal Procedure Description: Coronary Angiography Eb NEWMAN; Diagnostic Cath Status: Elective Diagnostic Findings * Circumflex has no disease. * Left Main: significant 80% stenosis, UZIEL: 3 flow. * Proximal Left Anterior Descending: significant 80% stenosis, UZIEL: 3 flow. * Distal Left Anterior Descending: severe 90% stenosis, UZIEL: 3 flow. * Distal Left Anterior Descending: severe 90% stenosis, UZIEL: 3 flow. * Proximal Right Coronary Artery: total occlusion, UZIEL: 0 flow. * First Obtuse Marginal Branch Segment: significant 80% stenosis, UZIEL: 3 flow. * Coronary angiography shows right dominance. Conclusions 1. There is total occlusion coronary artery disease with three vessel disease. 2. The septal, anterolateral, anteroapical chaudhary are hypokinetic. 3. All other visualized chaudhary normal. 4. Normal left ventricular systolic function. Ejection fraction of 50%. 5. Please note that despite of using different catheters including JR AL, 3 Verenice JACKSON were not able to engage RCA it appeared to me that it is chronically 100% occluded and calcified vessel. Aortogram was also performed which did not highlight RCA.. Recommendations * 1-Return to [facility] for close monitoring and routine PCI care 2-Continue IV heparin drip as per ACS protocol 3-Statin with LDL goal of 70 mg/dl, aspirin 81 mg p.o. daily for life long 4-CT surgery consults for CABG called at [facility] 5-Optimal medical management for IA 6-Follow up with Dr. Parson in four weeks and establish care with primary care physician. Interventional RX Recommendation: CABG Diagnostic RX Recommendation: CABG LV EDP: 10 mmHg Ventriculography Ejection Fraction: 50.0 % Left Ventriculography Findings: * Low normal left ventricular ejection fraction 50%. Pressures Phase:Rest AO : 134 / 84 ( 107 ) @ 3:24:00 PM 133 / 91 ( 112 ) @ 3:29:00 PM 168 / 84 ( 115 ) @ 3:37:00 PM 178 / 30 ( 81 ) @ 3:43:00 PM LV : 171 / -14 / 10 @ 3:42:00 PM 188 / -10 / 11 @ 3:43:00 PM Clinical Evaluation EBL: 5mL-10mL Procedural Details Pre-Procedure Time Out. Identified patient by full name and date of as verbalized by the patient/guarantor. Does the consent match the physician's order: Yes. Accurate & Complete Informed Consent: Yes. Inpatient/Outpatient History & Physical on Chart: Yes. If H&P is completed, is and addenduem needed: No; If yes, is the addendum complete: N/A. Visualize and Verify Site with Patient/Guarantor: N/A. Relevant Radiology Images available: Yes. Pre-op teaching completed and patient verbalized understanding. The risks, benefits, and alternatives of sedation and/or procedure were discussed by physician. The patient agrees to continue. Procedure started. Physician arrived. [facility] Clinical Fraility Score: 3: Managing Well. 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 Chest Pain Symptom Assessment: Atypical Angina. Correct patient, site and procedure confirmed by cath team. Current diagnosis: Chest Pain. PERRLA. Strong, equal hand tsa screener bilaterally. Lungs clear x 5 lobes. IV Site on Arrival: 20 gauge in the left anticubital. IV Fluids: 0.9% NaCl at KVO. 0 mL infused prior to lab analyst. Oxygen started at 2liters/min via nasal canula. right groin was prepped with chloroprep then draped in the usual sterile fashion. right radial was prepped with chloroprep then draped in the usual sterile fashion. Baseline sample Acquired. HR: 66 BPM. Patient's family unavailable. Physician scrubbed in. Immediate Pre-Procedure Time Out. Correct Patient: Yes; Correct Procedure: Yes; Correct Site: Yes; Correct Patient Position: Yes; Correct Supplies: Yes; Dried Flammable Prep: Yes; Blood Products Available: N/A;. Lidocaine 1% infiltrated to the right radial. Arterial access obtained. A 5 [place] island[place] TIG catheter in over wire. Glidewire inserted. Unable to advance catheter d/t tortuosity. Radial access aborted. Catheter and Glidewire out. A TR Band was successful obtaining hemostatsis at the Right Radial artery insertion site. Lidocaine 1% infiltrated to the right groin. Arterial access obtained with micropuncture set. Wire and needle out. Manual compression held. Arterial access obtained with micropuncture set. A 5 [place] island[place] JL4 catheter in over wire. Multiple views taken of left coronary artery. Catheter removed over the standard wire. A 5 [place] island[place] JR4 catheter in over wire. Catheter removed over the standard wire. A 5 [place] island[place] 3DRC catheter in over wire. Multiple views taken of right coronary artery. Catheter removed over the standard wire. 6 [place] islander AL 0.75 guide catheter was inserted over the wire. Guide catheter out. A 5 [place] island[place] Zeyad catheter in over wire. Admit Source: In Patient. Catheter removed over the standard wire. A 5 [place] island[place] Angled Pig catheter in over wire. Catheter advanced across the LV. EDP Sample taken: LV 171/-15,10; HR: 55 BPM; SpO2: 99%. LV gram performed in RODRIGEZ @ 10 mL/second for a total of 30 mL. EDP Sample taken: LV 188/-11,11; HR: 57 BPM; SpO2: 99%. Pullback taken: LV Off; AO Off; Mean: , Peak to Peak: , SEP: ; HR: 56 BPM; SpO2: 99%. Aortogram performed in RODRIGEZ @ 20 mL/second for a total of 40 mL. A Right femoral angiogram was performed to determine safe placement of closure device. Catheter out. Lidocaine 1% infiltrated to the right groin. Angioseal closure device inserted into R groin. A Angio-Seal VIP ([facility]) was successful obtaining hemostatsis at the Right Femoral artery insertion site. Lot #[id number] Exp 01/27/2025. Physician scrubbed out. Angioseal placed without complications. No signs or symptoms of hematoma noted. Sterile dressing applied per usual sterile fashion. Post Procedure: Pulses reassessed and unchanged. PERRLA. Strong, equal hand tsa screener bilaterally. No VTE prophylaxis required. Medication's Wasted: Heparin = 1000 u. Medication's Wasted: Other = Fentanyl 75 mcg. Medication's Wasted: Nitro = 49.8 mg. Total IV fluids: 100 mL. Post-op diagnosis: Multivessell CAD, NSTEMI, Refer for CABG. Complications: none. Estimated blood loss: 5mL-10mL. Responsiveness - Normal response to verbal stimuli; alert and oriented, PERRLA. Airway - Unaffected, no intervention required; spontaneous ventilation. Circulation: W/N/L, pulses unchanged. Nausea/Vomiting: No. Procedure completed. Patient transferred by bed to 1st floor. Vital chart was stopped. Access Site Site: Right Radial artery Sheath Size: 6 Fr Hemostasis Method: TR Band Hemostasis Success: Successful Site: Right Femoral artery Sheath Size: 6 Fr Hemostasis Method: Angio-Seal VIP ([facility]) Hemostasis Success: Successful Procedure Medications Start: 1:45 PM Stop: 1:45 PM Medication: Versed Amount: 1 mg Route: I.V. Start: 1:46 PM Stop: 1:46 PM Medication: Fentanyl Amount: 50 mcg Route: I.V. Start: 1:59 PM Stop: 1:59 PM Medication: Versed Amount: 1 mg Route: I.V. Start: 2:02 PM Stop: 2:02 PM Medication: Nitrogylcerin Amount: 200 mcg Route: I.A. Start: 2:04 PM Stop: 2:04 PM Medication: Fentanyl Amount: 50 mcg Route: I.V. Start: 2:04 PM Stop: 2:04 PM Medication: Versed Amount: 1 mg Route: I.V. Start: 2:13 PM Stop: 2:13 PM Medication: Versed Amount: 1 mg Route: I.V. Start: 2:50 PM Stop: 2:50 PM Medication: Fentanyl Amount: 50 mcg Route: I.V. I, the attending physician, have reviewed and verified all procedure medications. Yes, all medications given per verbal order History/Risk Factors Hypertension: Yes Dyslipidemia: Yes Peripheral Arterial Disease (PAD): No Myocardial Infarction (IA): No Obesity: No Renal Disease: No Prior Interventions PCI: No CABG: No Valve Surgery: No Report Signatures Finalized by Fredis Parson MD on 07/02/2024 06:46 PM
[2024-07-02 12:44] LABS: Iron 83 ug/dL (59-158); Percent Saturation 26.6 % (20-50); Thyroid Stimulating Hormone 0.79 uIU/mL (0.27-4.20); Total Iron Binding Capacity 311 mcg/dl; Unsaturated Iron Binding 228 ug/dL (112-347); Vitamin B12 250 pg/mL (232-1245)
--- NOTE | 2024-07-02 13:36 | PC.NURSE ---
Patient left unit for labor specialist at 1337.
--- NOTE | 2024-07-02 13:54 | W.PM.OPSUD ---
Surgery/Procedure H&P Update DATE OF PROCEDURE: July 02, 2024 DATE H&P PERFORMED: 07/02/24 H&P UPDATE INFORMATION: I have reviewed H&P completed within last 30 days, I have examined patient prior to procedure and No changes to prior documentation PREOP DIAGNOSIS: Non-ST relation IN PATIENT REASSESSED PRIOR TO SEDATION, WITH NO CHANGE NOTED: Yes PHYSICAL EXAM: alert, oriented x 3, clear to auscultation bilaterally, regular rate & rhythm and operative site marked AIRWAY EVAL/ANESTHESIA PLAN: ASA II, Risks, benefits & alternatives of sedation and/or procedure discussed and Patient agrees to continue as planned ADDITIONAL INFORMATION: Mallampati 2
--- NOTE | 2024-07-02 15:20 | PC.NURSE ---
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
[2024-07-02] MEDS: enoxaparin 80 mg/0.8 mL Syringe SUBCUT (17:49)
[2024-07-02] MEDS: prazosin 1 mg Capsule 2 MG PO (17:49)
--- NOTE | 2024-07-02 17:59 | P.PN_ITS ---
Subjective 2 Subjective: Underwent left heart catheterization noted to have triple-vessel disease including severe distal left main proximal and mid LAD, RCA appeared to be calcified and chronically occluded it has posterior takeoff ostium was not engaged despite of using different catheter subselective injection with catheter and aortogram did not show its patency. Patient has mild anterior wall hypokinesis with ejection fraction around 50%. Left ventricular end-diastolic pressure well within normal limit. There was no aortic valve gradient. Vitals/I&O/Wt Last Vital Signs Temp 98.4 F 07/02/24 16:00 Pulse 61 07/02/24 16:00 Resp 28 H 07/02/24 16:00 BP 119/75 07/02/24 16:00 Pulse Ox 90 07/02/24 16:00 O2 Del Method Room Air 07/02/24 16:00 07/02/24 07/02/24 07/02/24 06:59 14:59 22:59 Output Total 450 / 450 Balance -450 / -450 Weight last 48 hrs Weight 184 lb 4.903 oz Weight 185 lb 14.4 oz Weight 186 lb 8.177 oz Weight 185 lb Physical Exam 2 Const: COMMON NORMALS: alert OTHER: GENERAL: Patient is alert, awake and oriented x3. HEART: Regular S1 and S2. No murmur, rub or gallop. LUNGS: Clear to auscultate bilaterally. ABDOMEN: Soft, nontender and nondistended. Positive bowel sounds. No guarding, rebound or tenderness. CENTRAL NERVOUS SYSTEM: Grossly nonfocal. EXTREMITIES: Lower extremities with out edema bilaterally. Resp: COMMON NORMALS: clear to auscultation bilaterally AUSCULTATION: clear to auscultation bilaterally Neuro: SENSORIUM/ORIENTATION: Yes alert Data 07/02/24 03:10 07/02/24 03:10 Micro: Microbiology 07/01/24 21:26 Blood Culture - Preliminary Blood SPECIMEN COLLECTED 07/01/24 21:21 Blood Culture - Preliminary Blood SPECIMEN COLLECTED A&P Assessment and plan (1) Non-ST elevated myocardial infarction: Given patient presentation multivessel coronary artery disease including distal left main he will be benefited with coronary artery bypass surgery. Request for transfer made to Dr. Pedraza at [facility] CT surgery department. Awaiting bed, continue aspirin statin beta-nelli and anticoagulation in the form of heparin or Lovenox. (2) Hypertension: Well-controlled continue current regimen (3) Hyperlipidemia: Will continue patient on statin. Attestations 2 Medical Necessity Statement*: Patient require continuation hospitalization for above defined care Coding Level of Care Code Acute Code for Chg Fwd Diagnoses Non-ST elevated myocardial infarction I21.4 Hypertension I10 Hyperlipidemia E78.5
[2024-07-03] VITALS (7 sets, daily range): BP systolic 136–170; BP diastolic 79–93; PULSE 57–63; RESP 14–19; TEMP 37.1–37.2; O2SAT 93–95
[2024-07-03 04:34] LABS: Basophils # 0.1 10^3/uL (0.0-0.1); Eosinophils # 0.1 10^3/uL (0.0-0.8); Eosinophils % 2.3 %; Hematocrit 43.5 % (37-53); Lymphocytes # 1.5 10^3/uL (0.8-4.8); Lymphocytes % 24.2 %; Mean Corpuscular HGB Conc 32.9 g/dL (30-55); Mean Corpuscular Hemoglobin 30.2 pg (27-33); Mean Platelet Volume 9.7 fL (7.4-10.4); Monocytes # 0.6 10^3/uL (0.2-0.9); Monocytes % 9.4 %; Neutrophils % 62.9 %; Nucleated Red Blood Cells % 0 %; Platelet Count 253 10^3/cmm (157-399); Red Blood Count 4.73 10^6/uL (3.85-5.65); Red Cell Distribution Width 14.5 % (12.1-15.1); White Blood Count 6.19 10^3/uL (3.29-11.43)
[2024-07-03 05:00] LABS: Alanine Aminotransferase 9 U/L (0-41); Alkaline Phosphatase 89 U/L (40-130); Anion Gap 9.5 (5-19); Aspartate Amino Transferase 16 U/L (0-40); Blood Urea Nitrogen 11 mg/dL (8-23); Calcium 8.5 mg/dL (8.5-10.5); Carbon Dioxide 29 mmol/L (22-29); Chloride 105 mmol/L (98-107); Creatinine Clr Calc Pharmacy 75.3117; Globulin 2.8 g/dL (1.3-4.6); Glucose 98 mg/dL (65-115); Osmolality Calculated 289 mOsm/kg (285-295); Potassium 3.5 mmol/L (3.5-5.1); Sodium 140 mmol/L (136-145); Total Bilirubin 0.5 mg/dL (0.15-1.2); Total Protein 6.8 g/dL (6.6-8.7)
[2024-07-03] MEDS: enoxaparin 80 mg/0.8 mL Syringe SUBCUT ×2 (05:48→17:23)
--- NOTE | 2024-07-03 06:21 | PC.NURSE ---
2mL air was removed from TR band @ 1930, 1999, 2029. TR band was removed. 4x4 gauze was applied and covered with tegaderm, no hematoma at site.
[2024-07-03] MEDS: pantoprazole DR 40 mg Tablet PO (08:09)
[2024-07-03] MEDS: aspirin 81 mg EC Tablet PO (08:09)
[2024-07-03] MEDS: sertraline 100 mg Tablet PO (08:09)
[2024-07-03] MEDS: oxybutynin chloride XL 5 MG TABLET 10 MG PO (08:10)
--- NOTE | 2024-07-03 10:09 | P.TS_ITS ---
Transfer Summary Providers Date of Admission: 07/02/24 00:12 Date of Discharge/Transfer: 07/03/24 Attending Provider at Admission: Janiya Ventura MD Attending Provider at Transfer: Aman Pulido MD Consults: Cardiology: Dr. Parson Primary Care Provider: Ana Park MD Transfer Plans: Anticipated date of transfer: 07/03/24 . Diagnoses at Discharge Discharge Diagnosis (1) Non-ST elevated myocardial infarction: Status: Acute (2) Hypertension: Status: Acute (3) Hyperlipidemia: Status: Acute Reason for Visit Reason for Visit Abd Pain Brief History: History as per HPI: Raza Bauer is a 74 year old male with a past medical history of hypertension, prediabetes, dyslipidemia, occasional marijuana use presenting to the hospital today with chief complaints of dyspnea on exertion. Patient states he was in his usual state of health until last when he noticed that he started experiencing dyspnea with his usual activities. He states he was out chopping some firewood on his property when he started to experience chest discomfort as if his heart was not keeping up with the demand . He could barely walk 6 feet without getting short of breath. States that the symptoms continued to progress over the next 3 to 4 days and yesterday patient had to stop 4 times to get back into his house in order to catch his breath. Denies any orthopnea. Denies any PND. Saturating 93% on room air currently. Chest x-ray without gross consolidation. No other URI or respiratory symptoms. No known history of cardiac disease. States he had a stress test in [place] several years ago which was normal. Family history of heart disease in father which led to his demise, does not know at what age. Hospital Course Hospital Course Patient was admitted to the hospital further evaluation and management of chest pain and concern for non-ST elevation MS. He was started on treatment as per ACS with anticoagulation. Cardiology was consulted. He underwent echocardiogram which showed EF 60% with grade 1 diastolic dysfunction without regional wall motion maladies, severe aortic valve calcification with mildly restricted aortic valve with a gradient of 7.4 mmHg across the valve. He underwent cardiac angiogram where he was noted to have triple-vessel disease including severe distal left main proximal and mid LAD, RCA appeared to be calcified and chronically occluded it has posterior takeoff ostium was not engaged despite of using different catheter subselective injection with catheter and aortogram did not show its patency. Patient has mild anterior wall hypokinesis with ejection fraction around 50%. Left ventricular end-diastolic pressure well within normal limit. There was no aortic valve gradient. Given the above patient was advised to undergo CABG. Patient has been transferred to [facility] under Dr. Pedraza for further management with CABG. He has not had any further chest pain since hospitalization. Physical Exam Narrative: General: No acute distress, AO x3 HEENT: PERRLA, pupils bilaterally equal and reactive, pallors not present Chest: Normal vesicular breath sounds, no added sounds, equal good air entry bilaterally CVS: S1-S2 regular, no murmurs, no tachycardia, no gallops, no rubs Abdomen: Soft, nontender, no organomegaly, bowel sounds present Neuro: No focal deficits, no facial deformity, AO x3, power 5/5 in all limbs Ext: no edema, clubbing or cyanosis TS Data Studies Completed and Pending Pending at discharge Category Date Time Status Blood Culture Stat Lab 07/01/24 21:26 Results MAG [Magnesium] AM LABS Lab 07/04/24 04:00 Ordered MAG [Magnesium] AM LABS Lab 07/05/24 04:00 Ordered Completed Studies During Hospitalization Category Date Time Status CT abdomen pelvis w con* [id number] Stat Cat Scan 07/01/24 22:33 Completed [employer] request for service Routine Exams 07/02/24 12:30 Completed XR acute abdomen series [id number] Stat Exams 07/01/24 20:47 Completed CV. echo complete* [id number] Routine Ultrasound 07/02/24 04:55 Completed Laboratory Last Values WBC 6.19 10^3/uL (3.29-11.43) 07/03/24 03:51 RBC 4.73 10^6/uL (3.85-5.65) 07/03/24 03:51 Hgb 14.30 g/dL (11.27-16.99) 07/03/24 03:51 Hct 43.5 % (37-53) 07/03/24 03:51 MCV 92.0 fl (82-101) 07/03/24 03:51 MCH 30.2 pg (27-33) 07/03/24 03:51 MCHC 32.9 g/dL (30-55) 07/03/24 03:51 RDW 14.5 % (12.1-15.1) 07/03/24 03:51 Plt Count 253 10^3/cmm (157-399) 07/03/24 03:51 MPV 9.7 fL (7.4-10.4) 07/03/24 03:51 Neut % (Auto) 62.9 % 07/03/24 03:51 Lymph % (Auto) 24.2 % 07/03/24 03:51 [place] % (Auto) 9.4 % 07/03/24 03:51 Eos % (Auto) 2.3 % 07/03/24 03:51 Baso % (Auto) 1.0 % 07/03/24 03:51 Neut # (Auto) 3.90 10^3/uL (1.8-7.7) 07/03/24 03:51 Lymph # (Auto) 1.5 10^3/uL (0.8-4.8) 07/03/24 03:51 [place] # (Auto) 0.6 10^3/uL (0.2-0.9) 07/03/24 03:51 Eos # (Auto) 0.1 10^3/uL (0.0-0.8) 07/03/24 03:51 Baso # (Auto) 0.1 10^3/uL (0.0-0.1) 07/03/24 03:51 Nucleated RBC % (auto) 0 % 07/03/24 03:51 Nucleated RBCs # 0.0 /100WBC 07/03/24 03:51 D-Dimer 0.42 ug/mLFEU (0-0.59) 07/01/24 21:04 Sodium 140 mmol/L (136-145) 07/03/24 03:51 Potassium 3.5 mmol/L (3.5-5.1) 07/03/24 03:51 Chloride 105 mmol/L (98-107) 07/03/24 03:51 Carbon Dioxide 29 mmol/L (22-29) 07/03/24 03:51 Anion Gap 9.5 (5-19) 07/03/24 03:51 BUN 11 mg/dL (8-23) 07/03/24 03:51 Creatinine 0.9 mg/dL (0.7-1.2) 07/03/24 03:51 GFR Calculation Not Reportable 07/03/24 03:51 Glucose 98 mg/dL (65-115) 07/03/24 03:51 Estimat Average Glucose 128 07/02/24 03:10 Hemoglobin A1c 6.1 % (4.0-6.0) H 07/02/24 03:10 Calculated Osmolality 289 mOsm/kg (285-295) 07/03/24 03:51 Lactic Acid 1.8 mmol/L (0.5-2.2) 07/01/24 21:04 Calcium 8.5 mg/dL (8.5-10.5) 07/03/24 03:51 Magnesium 2.0 mg/dL (1.7-2.3) 07/03/24 03:51 Iron 83 ug/dL (59-158) 07/02/24 03:10 TIBC 311 mcg/dl 07/02/24 03:10 % Saturation 26.6 % (20-50) 07/02/24 03:10 Unsat Iron Binding 228 ug/dL (112-347) 07/02/24 03:10 Total Bilirubin 0.5 mg/dL (0.15-1.2) 07/03/24 03:51 AST 16 U/L (0-40) 07/03/24 03:51 ALT 9 U/L (0-41) 07/03/24 03:51 Alkaline Phosphatase 89 U/L (40-130) 07/03/24 03:51 Troponin T Baseline 69 ng/L (0-15) H 07/01/24 21:04 Troponin T 120 Minute 82.17 ng/L (0-15) H 07/01/24 23:20 Delta Troponin T 13.17 ABS# (0-10) H* 07/01/24 23:20 Troponin T Hi Sens 6Hr 90.35 ng/L (0-15) H 07/02/24 03:10 Troponin T Hi Sens 6Hr Delta 21.35 ng/L (0-12) H* 07/02/24 03:10 C-Reactive Protein 5.2 mg/L (0.0-4.9) H 07/01/24 21:04 Total Protein 6.8 g/dL (6.6-8.7) 07/03/24 03:51 Albumin 4.0 g/dL (3.5-5.2) 07/03/24 03:51 Globulin 2.8 g/dL (1.3-4.6) 07/03/24 03:51 Triglycerides 73 mg/dL (0-150) 07/02/24 03:10 Cholesterol 168 mg/dL (0-200) 07/02/24 03:10 LDL Cholesterol, Calc 86 mg/dL (50-129) 07/02/24 03:10 HDL Cholesterol 67 mg/dL (60-100) 07/02/24 03:10 LDL/HDL Ratio 1.28 RATIO (0.00-3.22) 07/02/24 03:10 Cholesterol/HDL Ratio 2.51 mg/dL (1.0-5.00) 07/02/24 03:10 Vitamin B12 250 pg/mL (232-1245) 07/02/24 03:10 Folate 7.0 ng/mL (4.5-32.2) 07/03/24 03:51 TSH 0.79 uIU/mL (0.27-4.20) 07/02/24 03:10 Urine Color Yellow (Yellow) 07/01/24 21:30 Urine Appearance Clear (CLEAR) 07/01/24 21:30 Urine pH 8.5 (5-7) A 07/01/24 21:30 Ur Specific [place] 1.013 (1.005-1.030) 07/01/24 21:30 Urine Protein Trace (Negative) A 07/01/24 21:30 Urine Glucose (UA) Negative (Normal) 07/01/24 21:30 Urine Ketones 2+ (Negative) H 07/01/24 21:30 Urine Blood Negative (Negative) 07/01/24 21:30 Urine Nitrate Negative (Negative) 07/01/24 21:30 Urine Bilirubin Negative (Negative) 07/01/24 21:30 Urine Urobilinogen 0.2 mg/dL (Negative) 07/01/24 21:30 Ur Leukocyte Esterase Negative (Negative) 07/01/24 21:30 Urine RBC 3-5 /hpf (0-2) 07/01/24 21:30 Urine WBC 0-5 /hpf (0-5) 07/01/24 21:30 Ur Squamous Epith Cells 0-5 /hpf (0-5) 07/01/24 21:30 Amorphous Sediment Not Reportable 07/01/24 21:30 Urine Bacteria None seen /hpf (NONE) 07/01/24 21:30 Hyaline Casts 0-4 /lpf H 07/01/24 21:30 Radiology Impressions Chest/Abdomen X-ray 07/01/24 20:47 IMPRESSION: No acute thoracic or abdominopelvic abnormality. Abdomen/Pelvis CT 07/01/24 22:33 IMPRESSION: No acute abdominopelvic abnormality. COMMENTS: Consistent with the [employer] [employer]'s Incidental Findings Committee white paper (J Am Neela Radiol 2018): Any incidental renal lesion less than 1 cm or classified as too small to characterize, or any incidental cystic renal lesion characterized as simple-appearing, is likely benign. No follow-up imaging is recommended for these lesions per consensus recommendations based on imaging criteria. Recent Clincial Data Last Vital Signs Temp 99.0 F 07/03/24 07:13 Pulse 58 L 07/03/24 07:13 Resp 16 07/03/24 07:13 BP 154/83 07/03/24 07:13 Pulse Ox 95 07/03/24 07:13 O2 Del Method Room Air 07/03/24 07:13 Vital Signs Temp Pulse Resp BP Pulse Ox O2 Del Method 07/03/24 07:13 99.0 F 58 L 16 154/83 95 Room Air 07/03/24 05:24 58 L 07/03/24 04:00 98.7 F 62 19 H 170/93 95 Room Air 07/02/24 23:39 98.2 F 63 26 H 142/86 93 Room Air Intake & Output/Weight 07/01/24 07/02/24 07/03/24 07/04/24 06:59 06:59 06:59 06:59 Intake Total 1000 / 1000 120 / 120 Output Total 450 / 450 Balance -450 / -450 1000 / 1000 120 / 120 Weight 83.6 kg 85.1 kg Vitals Last Vital Signs Temp 99.0 F 07/03/24 07:13 Pulse 58 L 07/03/24 07:13 Resp 16 07/03/24 07:13 BP 154/83 07/03/24 07:13 Pulse Ox 95 07/03/24 07:13 O2 Del Method Room Air 07/03/24 07:13 TS Medications Medications Acetaminophen (Acetaminophen 325 Mg Tablet) 650 mg PO Q6H PRN PRN Reason: Mild/Mod Pain Or Temp >/= 101 Al Hydrox/Mg Hydrox/Simethicone (Rkvn-Tdb-Vgusdvsmg-Gagandeep 30 Ml Udc) 30 ml PO Q15M PRN PRN Reason: INDIGESTION Alprazolam (Alprazolam 0.5 Mg Tablet) 0.25 mg PO TID PRN PRN Reason: ANXIETY Aspirin (Aspirin 81 Mg Ec Tablet) 81 mg PO DAILY [facility] Last Admin: 07/03/24 08:09 Dose: 81 mg Atorvastatin Calcium (Atorvastatin 40 Mg Tablet) 40 mg PO BEDTIME [facility] Last Admin: 07/02/24 21:02 Dose: 40 mg Atropine Sulfate (Atropine 1 Mg/Ml Sdv 1 Ml) 0.5 mg IVP PRN PRN PRN Reason: Symptomatic bradycardia Enoxaparin Sodium (Enoxaparin 80 Mg/0.8 Ml Syringe) 80 mg SUBCUT Q12H [facility] Last Admin: 07/03/24 05:48 Dose: 80 mg Sodium Chloride (Sodium Chloride 0.9%) 1,000 mls @ 100 mls/hr IV .Q10H [facility] Last Admin: 07/03/24 02:03 Dose: Not Given Magnesium Hydroxide (Magnesium Hydroxide 30 Ml Udc) 30 ml PO DAILY PRN PRN Reason: CONSTIPATION Morphine Sulfate (Morphine 4 Mg/Ml Sdv 1 Ml) 2 mg IVP Q4H PRN PRN Reason: SEVERE PAIN Naloxone HCl (Naloxone 0.4 Mg/Ml Sdv) 0.1 mg IVP Q2M PRN PRN Reason: OPIATERV Naloxone HCl (Naloxone 0.4 Mg/Ml Sdv) 0.1 mg IVP Q2M PRN PRN Reason: RESPIRATORY RATE < 8/MIN Nitroglycerin (Nitroglycerin 0.4 Mg Sublingual Tablet) 0.4 mg SUBLINGUAL Q5M PRN PRN Reason: CHEST PAIN Ondansetron HCl (Ondansetron 2 Mg/Ml Sdv 2 Ml) 4 mg IVP Q8H PRN PRN Reason: vomiting, or N/V if npo Oxybutynin Chloride (Oxybutynin Chloride Xl 5 Mg Tablet) 10 mg PO DAILY [facility] Last Admin: 07/03/24 08:10 Dose: 10 mg Pantoprazole Sodium (Pantoprazole Dr 40 Mg Tablet) 40 mg PO DAILY [facility] Last Admin: 07/03/24 08:09 Dose: 40 mg Prazosin HCl (Prazosin 1 Mg Capsule) 2 mg PO QPM [facility] Last Admin: 07/02/24 17:49 Dose: 2 mg Sertraline HCl (Sertraline 100 Mg Tablet) 100 mg PO DAILY [facility] Last Admin: 07/03/24 08:09 Dose: 100 mg Temazepam (Temazepam 15 Mg Capsule) 15 mg PO BEDTIME PRN PRN Reason: INSOMNIA Discontinued Medications Aspirin (Aspirin 325 Mg Tablet) 325 mg PO ONCE ONE Stop: 07/02/24 04:18 Last Admin: 07/02/24 04:48 Dose: 325 mg Clopidogrel Bisulfate (Clopidogrel 300 Mg Tablet) 300 mg PO ONCE ONE Stop: 07/02/24 04:18 Last Admin: 07/02/24 04:48 Dose: 300 mg Diphenhydramine HCl (Diphenhydramine 50 Mg Capsule) 50 mg PO ONCE ONE Stop: 07/02/24 10:31 Last Admin: 07/02/24 11:37 Dose: 50 mg Enoxaparin Sodium (Enoxaparin 40 Mg/0.4 Ml Syringe) 80 mg SUBCUT Q12H [facility] Last Admin: 07/02/24 04:48 Dose: 80 mg Fentanyl (Fentanyl 50 Mcg/Ml Inj 2ml) Confirm Administered Dose 100 mcg .ROUTE .STK-MED ONE Stop: 07/02/24 13:33 Fentanyl (Fentanyl 50 Mcg/Ml Inj 2ml) Confirm Administered Dose 100 mcg .ROUTE .STK-MED ONE Stop: 07/02/24 14:51 Heparin Sodium (Porcine) (Heparin 5,000 Unit/Ml Inj 1 Ml) Confirm Administered Dose 5,000 unit .ROUTE .STK-MED ONE Stop: 07/02/24 11:44 Heparin Sodium (Porcine) (Heparin 5,000 Unit/Ml Inj 1 Ml) Confirm Administered Dose 5,000 unit .ROUTE .STK-MED ONE Stop: 07/02/24 13:33 Hydromorphone HCl (Hydromorphone 1 Mg/Ml Inj 1 Ml) 1 mg IVP ONCE ONE Stop: 07/01/24 21:28 Last Admin: 07/01/24 21:39 Dose: 1 mg Sodium Chloride (Sodium Chloride 0.9%) 1,000 mls @ 50 mls/hr IV .Q20H ONE Stop: 07/03/24 06:29 Last Infusion: 07/03/24 06:17 Dose: Infused Lidocaine HCl (Xylocaine) Confirm Administered Dose 20 mls @ as directed .ROUTE .STK-MED ONE Stop: 07/02/24 13:33 Iohexol (Iohexol 350 Mg/Ml 500 Ml Btl (Per Ml)) 0 ml IV ONCE ONE Stop: 07/01/24 22:46 Last Admin: 07/01/24 22:46 Dose: 100 ml Midazolam HCl (Midazolam 1 Mg/Ml Inj 2 Ml) Confirm Administered Dose 2 mg .ROUTE .STK-MED ONE Stop: 07/02/24 13:33 Midazolam HCl (Midazolam 1 Mg/Ml Inj 2 Ml) Confirm Administered Dose 2 mg .ROUTE .STK-MED ONE Stop: 07/02/24 13:57 Nitroglycerin (Nitroglycerin 5 Mg/Ml Sdv 10 Ml) Confirm Administered Dose 50 mg .ROUTE .STK-MED ONE Stop: 07/02/24 13:33 Ondansetron HCl (Ondansetron 2 Mg/Ml Sdv 2 Ml) 4 mg IVP ONCE ONE Stop: 07/01/24 21:28 Last Admin: 07/01/24 21:40 Dose: 4 mg Allergies No Known Allergies Allergy (Verified 09/18/23 11:38) Home Medications cetirizine 10 mg tablet 10 mg PO DAILY 09/18/23 [History Confirmed 07/02/24] cholecalciferol (vitamin D3) 10 mcg (400 unit) tablet (Vitamin D3) 10 mcg PO DAILY 09/18/23 [History Confirmed 07/02/24] ondansetron 4 mg disintegrating tablet 4 mg PO Q6H PRN nausea and vomiting #14 tabs 09/18/23 [Rx Confirmed 07/02/24] prazosin 2 mg capsule 2 mg PO QPM 09/18/23 [History Confirmed 07/02/24] rosuvastatin 40 mg tablet 40 mg PO QPM 09/18/23 [History Confirmed 07/02/24] sertraline 100 mg tablet 100 mg PO DAILY 09/18/23 [History Confirmed 07/02/24] oxybutynin chloride 10 mg tablet,extended release 24 hr 10 mg PO DAILY 07/02/24 [History Confirmed 07/02/24] Discharge Plan Discharge Patient Disposition: Home Condition: Stable Prescriptions: No Action cetirizine 10 mg Tablet 10 mg PO DAILY sertraline 100 mg Tablet 100 mg PO DAILY cholecalciferol (vitamin D3) [Vitamin D3] 10 mcg (400 unit) Tablet 10 mcg PO DAILY prazosin 2 mg Capsule 2 mg PO QPM rosuvastatin 40 mg Tablet 40 mg PO QPM ondansetron 4 mg tablet,disintegrating 4 mg PO Q6H PRN (Reason: nausea and vomiting) Qty: 14 0RF oxybutynin chloride 10 mg Tablet Extended Release 24hr 10 mg PO DAILY Discharge Orders: Transfer Out of Facility (Order); Ordered 07/03/24 Ordered By: Aman Pulido Referrals: Ana Park MD [Primary Care Provider] - Patient Instructions: Opioid Safety Transfer Attestations Time Spent in Transfer Care: greater than 30 min Specific Discharge Activities: educating patient, discussing with pcp/other providers, discussing with comp field case manager/social workers/dc planners, documenting/other paperwork and evaluating patient/reviewing data Status at Transfer: Cognitive status at transfer: cognitively intact ; Behavioral status at transfer: cooperative ; Functional status at transfer: independent ambulation ; Overall status at transfer: patient is not back to baseline Quality Metrics Clinical Quality Measures [ Acute Myocardial Infaction { Clinical Trial Participant: No; Contraindication to aspirin: None; Aspirin prescribed; Contraindication to statin: None; Statin prescribed; Contraindication to PCI: Further opinion sought; Contraindication to Fibrinolytics: None; fibrinolytics given}] Coding Level of Care Code 93197 Total time (in minutes) for Discharge: 60 Diagnoses Non-ST elevated myocardial infarction I21.4 Hypertension I10 Hyperlipidemia E78.5
--- NOTE | 2024-07-03 10:32 | PM.PN ---
Subjective Subjective: On today's visit patient denies any chest pain. He is status post left heart catheterization as defined below yesterday. He has multivessel coronary artery disease including distal left main, patient has been accepted at [facility] under care of Dr. Pedraza with CT surgery. He has bed now will be transferred today. Underwent left heart catheterization noted to have triple-vessel disease including severe distal left main proximal and mid LAD, RCA appeared to be calcified and chronically occluded it has posterior takeoff ostium was not engaged despite of using different catheter subselective injection with catheter and aortogram did not show its patency. Patient has mild anterior wall hypokinesis with ejection fraction around 50%. Left ventricular end-diastolic pressure well within normal limit. There was no aortic valve gradient. Vitals/I&O/Wt Last Vital Signs Temp 99.0 F 07/03/24 07:13 Pulse 58 L 07/03/24 07:13 Resp 16 07/03/24 07:13 BP 154/83 07/03/24 07:13 Pulse Ox 95 07/03/24 07:13 O2 Del Method Room Air 07/03/24 07:13 07/02/24 07/03/24 07/03/24 22:59 06:59 14:59 Intake Total 1000 / 1000 120 / 120 Balance 1000 / 1000 120 / 120 Weight last 48 hrs Weight 187 lb 9.814 oz Weight 184 lb 4.903 oz Weight 185 lb 14.4 oz Weight 186 lb 8.177 oz Weight 185 lb Physical Exam Const: COMMON NORMALS: alert OTHER: GENERAL: Patient is alert, awake and oriented x3. HEART: Regular S1 and S2. No murmur, rub or gallop. LUNGS: Clear to auscultate bilaterally. ABDOMEN: Soft, nontender and nondistended. Positive bowel sounds. No guarding, rebound or tenderness. CENTRAL NERVOUS SYSTEM: Grossly nonfocal. EXTREMITIES: Lower extremities with out edema bilaterally. Resp: COMMON NORMALS: clear to auscultation bilaterally AUSCULTATION: clear to auscultation bilaterally Neuro: SENSORIUM/ORIENTATION: Yes alert Data 07/03/24 03:51 07/03/24 03:51 Micro: Microbiology 07/01/24 21:26 Blood Culture - Preliminary Blood NEGATIVE TO DATE 07/01/24 21:21 Blood Culture - Preliminary Blood NEGATIVE TO DATE A&P Assessment and plan (1) Non-ST elevated myocardial infarction: For multivessel coronary disease patient has been referred to CT surgery. Continue aspirin statin beta-nelli add isosorbide mononitrate. Ejection fraction appeared to be low normal 50% by left ventriculogram and 55% by echocardiogram. There was no significant aortic valve stenosis, it appeared to me that patient has mild aortic valve restriction. There were no significant aortic valve gradient on LV gram. Patient will be transferred to [facility] today. (2) Hypertension: Controlled continue current regimen (3) Hyperlipidemia: Will continue patient on statin. Attestations Medical Necessity Statement*: Patient will be transferred to [facility] awaiting Coding Level of Care Code Acute Code for [facility] Diagnoses Non-ST elevated myocardial infarction I21.4 Hypertension I10 Hyperlipidemia E78.5
--- NOTE | 2024-07-03 11:02 | PC.NURSE ---
Patients ponce is returned to him for transfer to [facility].
[2024-07-03] MEDS: isosorbide mononitrate ER 30 mg Tablet PO (11:05)
--- NOTE | 2024-07-03 11:38 | PC.NURSE ---
Report is called to Ashley Armas RN at [facility] [phone] at 1130. Patient is going to bed 352-1. Dr. Pedraza.
[2024-07-03] MEDS: prazosin 1 mg Capsule 2 MG PO (17:23)
--- NOTE | 2024-07-03 18:37 | PC.NURSE ---
Patient left by EMS to [facility] at 1838.
== END 2024-07-03 18:37 | disposition short-term general hospital (02) | DRG 282 ==
LOC: ER 07-02 00:06 → CSU 07-02 00:13
PROVIDERS: Internal Medicine Cardiovascular Disease; Admitting Provider Student in an Organized Health Care Education/Training Program; Emergency Provider Emergency Medicine; PCP Family Medicine; Visit Provider Student in an Organized Health Care Education/Training Program
PROC: B2111ZZ Fluoroscopy of Multiple Coronary Arteries using Low Osmolar Contrast (ICD-10-PCS; principal; 2024-07-02 13:00)
DX: I21.4 Non-ST elevation (NSTEMI) myocardial infarction (principal); I25.10 Atherosclerotic heart disease of native coronary artery without angina pectoris; I10 Essential (primary) hypertension; R73.03 Prediabetes; E78.5 Hyperlipidemia, unspecified; I35.0 Nonrheumatic aortic (valve) stenosis; Z82.49 Family history of ischemic heart disease and other diseases of the circulatory system
CPT/HCPCS: 36415; 74022; 74177; 80048; 80053; 80061; 81001; 82607; 82746; 83036; 83540; 83550; 83605; 83735; 84443; 84484; 85025; 85378; 86140; 87040; 93005; 93306; 93458; 96372; 96374; 96375; 96376; 99152; 99153; 99285; C1760; C1769; C1887; C1894; G0269; J1170; J1644; J1650; J2250; J2405; J3010; J3490; J7030; Q0163; Q9967